=== PATIENT | male | born 1945 | race Asian ===

== ENCOUNTER 2018-10-13 06:34 | Day surgery (SDC) | payer MEDICARE, OTHER ==
[~2018-10-13] VITALS: Ht 170.2 cm; Wt 59.4 kg
[~2018-10-13 06:34] MED LIST: amlodipine; doxazosin; topical cream; tylenol; vitamin c
[2018-10-13 07:20] VITALS: Ht 170.2 cm; Wt 59.4 kg
[2018-10-13 08:28] VITALS: BP 142/65; PULSE 75; RESP 17
--- NOTE | 2018-10-14 06:23 | SP ---
DATE OF PROCEDURE: 10/13/2018 HISTORY OF PRESENT ILLNESS: A 73-year-old male with a history of palate cancer is undergoing this pr ocedure for a malfunctioning G-tube. The risk of the procedure, related and unrelated complications, anesthetic complication explained and informed consent was obtained. The patient was brought to the GI lab. The existing G-tube was removed by the traction method and th rough the same gastrocutaneous fistula, replacement G-tube of 20-[place] passed with much ease into th e stomach. Balloon was inflated with 20 mL normal saline, external bumper secured. There was a retr ograde flow of gastric content into the stalk of the replacement G-tube confirming its position in th e stomach. External bumper was secured. The patient tolerated the procedure very well. IMPRESSION: Malfunctioning G-tube successfully changed. PLAN: Resume feeding. If there is a discharge, bleeding or abdominal pain, they should contact my o ffice. Dictated By: BERTHA MA/MANINDER Conf#: [id number] DID#: [id number]
== END 2018-10-13 13:51 | disposition home or self-care (01) ==
LOC: GIL 06:34
PROVIDERS: ATTEND Internal Medicine Gastroenterology
DX: K94.23 Gastrostomy malfunction (principal); Y84.8 Other medical procedures as the cause of abnormal reaction of the patient, or of later complication, without mention of misadventure at the time of the procedure; C05.9 Malignant neoplasm of palate, unspecified; C02.9 Malignant neoplasm of tongue, unspecified
CPT/HCPCS: 43762